=== PATIENT | female | born 1985 | race Caucasian/White ===

== ENCOUNTER 2024-10-10 06:16 | Day surgery (SDC) | payer OTHER ==
[2024-10-06 15:20] VITALS: BMI 25.4
[2024-10-10] MEDS ORDERED: MIDAZOLAM HCL 2 MG/2 ML SINGLE DOSE VIAL ONE (07:13)
[2024-10-10] MEDS ORDERED: ROCURONIUM BROMIDE 50 MG/5 ML SYRINGE ONE (07:13)
[2024-10-10] MEDS ORDERED: PROPOFOL 20 ML ONE (07:13)
[2024-10-10] MEDS ORDERED: oxyCODONE HCL 5 MG TABLET PO PRN (07:37)
[2024-10-10] MEDS ORDERED: PROMETHAZINE HCL 25 MG/1 ML VIAL IVPB PRN (07:37)
[2024-10-10] MEDS ORDERED: ONDANSETRON 4 MG/2 ML VIAL IVPUSH PRN (07:37)
[2024-10-10] MEDS ORDERED: BUPIVACAINE HCL/PF 2.5 MG/ML - 30 ML VIAL IJ ONE (07:42)
[2024-10-10] MEDS ORDERED: LACTATED RINGERS SOLUTION 1,000 ML IV SCH (07:45)
[2024-10-10] MEDS ORDERED: ceFAZolin SODIUM 1 GM VIAL ONE (08:23)
[2024-10-10] MEDS ORDERED: KETOROLAC TROMETHAMINE 30 MG/1 ML VIAL ONE (08:23)
[2024-10-10] MEDS ORDERED: ONDANSETRON 4 MG/2 ML VIAL ONE (08:23)
[2024-10-10] MEDS ORDERED: DEXAMETHASONE SOD PHOSPHATE 4 MG/1 ML VIAL ONE (08:23)
[2024-10-10] MEDS ORDERED: SUGAMMADEX SODIUM 200 MG/2 ML VIAL ONE (08:41)
[2024-10-10] MEDS ORDERED: ACETAMINOPHEN INJECTION 100 ML ONE (08:55)
[2024-10-10 10:02] VITALS: RESP 16
[2024-10-10 10:42] VITALS: TEMP 97
[2024-10-10 11:40] VITALS: BP 107/61; PULSE 66
== END 2024-10-10 11:35 | disposition home or self-care (01) ==
LOC: FASU 06:16
PROVIDERS: ATTEND Surgery
PROC: 0DTJ4ZZ Resection of Appendix, Percutaneous Endoscopic Approach (ICD-10-PCS; principal; 2024-10-10 08:33)
DX: K35.32 Acute appendicitis with perforation, localized peritonitis, and gangrene, without abscess (principal); K66.0 Peritoneal adhesions (postprocedural) (postinfection)
CPT/HCPCS: 81025; 88304-TC; 94760; J0131